=== PATIENT | male | born 1930 | race Caucasian/White ===

== ENCOUNTER 2016-07-27 10:48 | Inpatient (IN) | payer MEDICARE, BC ==
[~2016-07-27] VITALS: Ht 182.9 cm; Wt 81.1 kg
--- NOTE | ~2016-07-27 | ECH ---
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 Summary Technically fair exam. The estimated left ventricular ejection fraction is 10- 15%. Global hypokinesis. The left ventricle is severly dilated . Mild concentric left ventricular hypertrophy. Diastolic function indeterminate due to patient's arrhythmia. Mild to moderately reduced right ventricular function. Mild to moderately dilated right ventricle. The left atrium is severely dilated by LA volume index measurement. The right atrium is severely dilated. MIld mitral regurgitation. There is trivial aortic regurgitation by color Doppler. Moderate to severe tricuspid regurgitation by color Doppler. There is moderate pulmonary hypertension. The pulmonary pressure (RVSP) is 46mmHg. Recommendation The patient was given the results of the exam during their hospital stay. Procedure Type of Study TTE procedure:Echo Complete SF. Procedure Date Date: 07/29/2016 Start: 09:34 AM Technical Quality: Adequate visualization Indications:Non-sustained VTach, Coronary artery disease and Atrial fibrillation. Additional Indications:AICD Appropriate Use Criteria: 9 Height: 72 inches Weight: 194 pounds BSA: 2.1 m Rhythm: Paced HR: 80 bpm BP: 110/60 mmHg M-Mode/2D Measurements LV Diastolic Dimension: 7.03 cm LV Systolic Dimension: 6.34 cm LV Septum Diastolic: 1.14 cm LV PW Diastolic: 1.18 cm AO Root Dimension: 2.08 cm Cardiac Output: 2.7 l/min LA Dimension: 5.35 cm Cardiac Index: 1.29 l/min*m RV Diastolic Dimension: 3.3 cm LA volume index: 68 ml/m LVOT: 2.19 cm LVOT VTI: 8.96 cm RV Base: 4.9 cm LV Stroke volume: 33.73 ml RV Mid: 3.4 cm LV Stroke volume index: 16.06 ml/m RV Length: 8.6 cm TAPSE: 1.38 cm Doppler Measurements AV Peak Velocity: 0.8 m/s MV Peak E-Wave: 0.94 m/s AV Peak Gradient: 2.56 mmHg AV Mean Gradient: 1.53 mmHg LVOT Peak Velocity: 0.45 m/s AV Area (Continuity):2.01 cm PV Peak Velocity: 0.69 m/s TR Velocity:3.19 m/s PV Peak Gradient: 1.92 mmHg TR Gradient:40.7 mmHg Estimated PASP: 45.7 mmHg Estimated RAP:5 mmHg Estimated RVSP: 46 mmHg RA Area: 28.5 cm Findings Left Ventricle The left ventricle is severly dilated . Mild concentric left ventricular hypertrophy. Diastolic function indeterminate due to patient's arrhythmia. Right Ventricle Mild to moderately reduced right ventricular function. Mild to moderately dilated right ventricle. Device lead noted in the right ventricle. Left Atrium The left atrium is severely dilated by LA volume index measurement. Right Atrium The right atrium is severely dilated. Device lead seen in the right atrium. Mitral Valve Normal mitral valve structure and function. Mild mitral regurgitation by color Doppler. Aortic Valve The aortic valve is mildly sclerotic. There is trivial aortic regurgitation by color Doppler. Tricuspid Valve Normal appearing tricuspid valve. Moderate to severe tricuspid regurgitation by color Doppler. There is moderate pulmonary hypertension. The pulmonary pressure (RVSP) is 46mmHg. Pulmonic Valve Normal pulmonic valve structure and function. Pericardial Effusion No evidence of pericardial effusion. Miscellaneous Visualized portions of the aortic root and ascending aorta appear normal in size. Pleural Effusion No evidence of pleural effusion. Contractility Score LV regional wall motion:(0-Non visualized 1-Normal 2-Hypokinesis 3-Akinesis 4-Dyskinesis 5-Aneurysm) Signature
--- NOTE | ~2016-07-27 | CO ---
ADMIT: 07/27/2016 RM/LOC: 405 [facility] MR#: [id number] [address] [facility] [address] [place] [phone] DON LOVELL Keisha [address] [place], [place] [address] Consultation SEX: M AGE: 85 : 1930 DATE OF CONSULTATION: 08/01/2016 ATTENDING PHYSICIAN: Felicia Kaur CONSULTING PHYSICIAN: Ruben Barrientos MD ADDENDUM: CHIEF COMPLAINT: The patient has had worsening dysphagia. It has been going on for several months, but it got quite a bit worse over the last few weeks especially since he has been in the hospital since Friday. He is able get soft foods and liquids to go down, but it has become more of a problem for him. He had an upper GI done recently, which showed evidence of narrowing with minimal barium going through his distal esophagus and probably about a 5 mm opening. Does not appear to have a hiatal hernia, but nonetheless has minimal emptying of his esophagus into the stomach. So, because of this, I was asked to see him for possible upper endoscopy and dilation. Unfortunately, the patient has recently been on amiodarone, he is on Coumadin. His INR is over 2 at this time. On exam, his abdomen is soft. It is nontender. I have actually done a hernia repair on him in the past. ASSESSMENT: Dysphagia with evidence of narrowing in the distal esophagus. PLAN: I have recommended proceeding with EGD and dilation, but because of his Coumadin, we will have to him off that for a few days to allow his INR to reverse to normal. I will defer his anticoagulation to Dr. Kaur in the mean time, as well as his amiodarone to the document control supervisor. So, we will tentatively plan on doing this for him on Friday. He and his daughter understand all this and agree with the plan. Ruben Barrientos MD/ geeta JOB #: [id number] CC: Felicia Kaur, Attending Physician Felicia Kaur, Family Physician
[~2016-07-27 10:48] MED LIST: BENTYL10 MG PO; COREG DPS12.5 MG PO; COREG6.25 MG PO; COUMADIN5 MG PO; COUMADIN6 MG PO; CULTURELLE1 CAP PO; DIOVAN80 MG PO; FLECTOR 1.3% TP; KLOR-CON M2020 MEQ PO; LACTAID1 TAB PO; LIPOFLAVOVIT C1 EACH PO; MAALOX DPS30 ML PO; MICRO-K DPS10 MEQ PO; MOI-STIR120 ML SL; NITROSTAT0.4 MG SL; OCEAN NASAL MIS45 ML NS; PERCOCET 5 DPS1 TAB PO; PROVENTIL2.5 MG/3 M IH; ROBITUSSIN100 MG/5 M PO; SURFAK240 MG PO; TESSALON PERLE100 MG PO; VITAMIN B12-FO1 EACH PO; VITAMIN D31000 UNIT PO
--- NOTE | 2016-07-28 13:58 | CO ---
ADMIT: 07/27/2016 RM/LOC: 405 [facility] MR#: [id number] 2620 [facility] [address] [place] [phone] DON LOVELL [address] [place], [place] [id number] Consultation SEX: M AGE: 85 : 1930 DATE OF CONSULTATION: 07/28/2016 ATTENDING PHYSICIAN: Felicia Kaur CONSULTING PHYSICIAN: Mickey Aguilar MD REASON FOR CONSULTATION: Nonsustained ventricular tachycardia. HISTORY OF PRESENT ILLNESS: Darío is a pleasant 85-year-old male, who is well known to [facility], whom I was asked to see in consultation from Dr. Yony Barker regarding nonsustained ventricular tachycardia. Darío has a long history of coronary artery disease and a history of severe ischemic cardiomyopathy with an EF of 15% to 20%. He has had problems with recurrent paroxysmal ventricular tachycardia and previously had been on sotalol and amiodarone, but he has had intolerances. Yesterday, he presented to the emergency room where he would have spells where he would have nausea with vomiting. He would also feel palpitations and dizzy. He would feel like his heart was beating fast and hard. He denies receiving any ICD shocks but did have his device interrogated yesterday in the emergency room. He had 6% of PVCs and nonsustained ventricular tachycardia, otherwise it was 94% BiV paced. He denies any chest pain. He has had increased lower extremity edema, but denies any orthopnea. He says he has been taking his medications as prescribed, but [facility] PAST MEDICAL HISTORY: 1. History of ischemic cardiomyopathy with an EF of 15% to 20%, status post biventricular ICD. 2. History of coronary artery disease with remote CABG and multiple PCIs since then. CABG was in 1994. 3. History of permanent atrial fibrillation on Coumadin. 4. Status post AV node ablation with biventricular ICD in 2005. 5. History of hypertension. 6. History of B12 deficiency. 7. Chronic kidney disease. 8. Constipation. 9. History of pulmonary hypertension. 10.History of kidney stones. 11.Hyperlipidemia. 12.History of GERD. 13.History of Meniere's disease with chronic dizziness. 14.History of hernia repair. 15.Status post inguinal hernia repair. HOME MEDICATIONS: Include: 1. Acetaminophen. 2. Carvedilol. 3. Aspirin. 4. Vitamin D. 5. Bentyl. ADMIT: 07/27/2016 RM/LOC: 405 [facility] MR#: [id number] [address] [address] DON LOVELL [facility] [place] [address] Consultation SEX: M AGE: 85 : 1930 6. Lactose. 7. Lactobacillus. 8. Nitro. 9. Protonix. 10.Torsemide. 11.Valsartan. 12.Dextran. 13.Coumadin. 14.Recently started on levothyroxine. ALLERGY: List is extensive and documented in the chart, but include amiodarone intolerance along with sotalol intolerance. He has also had a history of problems with anesthetics, tetracycline, macrolides, nifedipine, lactulose, cefpodoxime, procainamide, vancomycin, and latex. SOCIAL HISTORY: He lives with his daughter. He is . Remote smoking history. Denies any alcohol use. He drinks one cup of coffee a day. He does use his walker to walk around in the house, and walks to appointments, but does not do any regular exercise. FAMILY HISTORY: Family history of heart disease in his father, brother. Also, family history of diabetes in sister and brother. REVIEW OF SYSTEMS: GENERAL: Denies any weight gain, weight loss, or fever. He has had a decreased appetite recently. EYES: Denies any visual changes, but has had problems with visual changes with amiodarone previously. ENT: Denies any hearing loss. RESPIRATORY: Denies hemoptysis. He does snore. CARDIAC: Denies chest pain, or diaphoresis. He does have the palpitations and lightheadedness. VASCULAR: Denies any claudications, but does have increased lower extremity edema. GI: He has had nausea and vomiting. Does have history of reflux. : He has history of kidney stones. Denies any nocturia or hematuria. ENDOCRINE: [facility]. NEUROLOGIC: Denies any memory loss or seizures. He does have chronic dizziness and relates that to Meniere's. PSYCHIATRIC: Denies any depression or hallucinations. No anxiety. SKIN: Denies any rashes. MUSCULOSKELETAL: He has joint pains and myalgias. HEMATOLOGIC/ONCOLOGIC: Denies any history of anemia or bleeding, or low platelets. Denies any history of cancer. All other systems reviewed and negative. PHYSICAL EXAMINATION: VITAL SIGNS: Blood pressure was 146/66, pulse is 80, respirations 16, temperature 96.3, oxygen 96% on room air. GENERAL: He is in no acute distress. He is alert and oriented. Cooperative. ADMIT: 07/27/2016 RM/LOC: 405 [facility] MR#: [id number] [address] [place] [phone] DON LOVELL [address] [place] [address] Consultation SEX: M AGE: 85 : 1930 HEENT: Normocephalic and atraumatic. Moist mucous membranes. No scleral icterus. NECK: Supple. JVP is difficult to visualize. LUNGS: Clear to auscultation bilaterally. HEART: Regular rate and rhythm. ABDOMEN: Soft, nontender, and nondistended. Mildly obese. EXTREMITIES: He has mild edema bilaterally. NEUROLOGIC: Cranial nerves II through XII intact. SKIN: No rashes. LABORATORY DATA: Potassium is 3.5, creatinine 1.1. INR is 2.2, troponin is negative at 0.034. White blood cell count 4.2, hemoglobin 11.6, platelets 106. Magnesium is 2. EKG shows ventricular paced rhythm. IMPRESSION AND PLAN: 1. Recurrent nonsustained ventricular tachycardia. The patient has a history of VT with multiple intolerances to antiarrhythmics including amiodarone, sotalol, and procainamide. He has seen EP with Dr. Martinez in the past and with his intolerances, there has not been much to offer other than maximal medical therapy with beta-miller. There are no signs of underlying ischemia, but he does have some increased lower extremity edema. We will try to give him some Lasix today. I would also try to increase his beta-miller. Certainly, his prognosis is very guarded with his underlying severe ischemic cardiomyopathy. I did discuss code status with him and if his ICD is unsuccessful, he does not want further resuscitative measures taken. 2. Ischemic cardiomyopathy with an EF of 15%. 3. Status post biventricular ICD. 4. Permanent atrial fibrillation on Coumadin. 5. Coronary artery disease. Thank you for allowing us to participate in the care of your patient. We will follow along and amend our plan as his care progresses. Mickey Aguilar MD/ geeta JOB #: [id number] CC: Felicia Kaur, Attending Physician Felicia Kaur, Family Physician
--- NOTE | 2016-08-03 17:54 | ER ---
ADMIT: 07/27/2016 RM/LOC: 405 [facility] MR#: [id number] [facility] [address] [address] CARLOTTA LOVELLLEY Keisha [address] [place] [address] Emergency Room Report SEX: M AGE: 85 : 1930 DATE: 07/27/2016 The patient presents to the emergency room with palpitations, nausea, feelings of a shock in his chest, started early this morning. He kind of felt sick of his stomach. Daughter brought him into the emergency room for evaluation. He had some tightness, but he said it is something that he has not felt before. He also adds that his AICD is supposed to be interrogated or rechecked recently in the next few weeks. REVIEW OF SYSTEMS: Otherwise negative. He is very articulate, very pleasant with it and able to give his history very appropriately. He said he got up this morning, tried to get started on the day when he felt this uneasiness in his chest. PAST MEDICAL HISTORY: Positive for inguinal hernia, cardiac bypass, CHF, hypercholesterolemia, hypertension, stents, and cholecystectomy. MEDICATIONS: See T-sheet. ALLERGIES: MULTIPLE, SEE T-SHEET. PHYSICAL EXAMINATION: VITAL SIGNS: Reviewed. GENERAL: He is mildly anxious, but alert. Daughter is at bedside. HEENT: Normal inspection. Oral mucosa slightly dry. NECK: Supple. No JVD. No bruits. RESPIRATIONS: No distress. CVS: Irregular. ABDOMEN: Nontender. SKIN: Good color and turgor. EXTREMITIES: Pedal edema bilaterally 2+. NEUROLOGIC: Oriented x4. Mood and affect are appropriate although slightly anxious. LABORATORY DATA: Typically basic labs for Cardiology were done. His white ADMIT: 07/27/2016 RM/LOC: 405 [facility] MR#: [id number] [address] [address] DON LOVELL [address] [place] [address] Emergency Room Report SEX: M AGE: 85 : 1930 count 4.2 with a hemoglobin of 11.8, hematocrit 37, platelets slightly low at 125. His BUN is 25 with a sodium of 147, alkaline phosphatase 141 with a GFR of 55. BNP 3833. We went ahead and contacted the AICD passenger representative for [facility] and he came in, interrogated the AICD and found some irregularities and atrial fibrillation with RVR on several occasions which was pretty transient and at the same time, he started developing his symptoms in the morning. CLINICAL IMPRESSION: Congestive heart failure exacerbation with arrhythmia, leg edema bilaterally, pacer, AICD activation. He was admitted. Dr. Warner contacted Dr. Yony Barker for Dr. Kaur and Cardiology contacted as well for consultation. The patient admitted to the hospital for further evaluation. BRODY Rivas / Mohinder Warner MD / modl JOB #: [id number] CC: Felicia Kaur MD, Attending Physician Felicia Kaur MD, Family Physician
--- NOTE | 2016-08-05 07:29 | HP ---
ADMIT: 07/27/2016 RM/LOC: 405 [facility] MR#: [id number] 2620 [facility] [address] [place] [phone] CARLOTTA LOVELLCHIDI Val[address] [place] [address] History and Physical SEX: M AGE: 85 : 1930 DATE OF SERVICE: 07/27/2016 CHIEF COMPLAINT: Nausea, vomiting, palpitations, and heart beating fast. HISTORY OF PRESENT ILLNESS: The patient is a very pleasant 85-year-old gentleman. He has past medical history of coronary artery disease, ischemic cardiomyopathy, atrial fibrillation, and ventricular tachycardia, status post AICD. He presents to [facility] Emergency Room today with the last 24 to 36 hours of spells of where he all of a sudden would have a minute or so of nausea with vomiting, palpitations, dizziness, and feeling just like his heart was beating fast and beating very hard. He denies any AICD shocks. Denies any real chest pain, but notes maybe a little short of breath, but has noted more episodes end of this and he can mention even over the last 36 hours as I mentioned. The patient notes he has been taking all of his medications as directed. Does note recently [facility], and with all of these significant symptoms, he had an AICD interrogation in the emergency room that showed multiple episodes of ventricular tachycardia, nonsustained. He is admitted for observation. PAST MEDICAL HISTORY: 1. Ischemic cardiomyopathy, permanent atrial fibrillation, status post BiV AICD. 2. Hypertension. 3. B12 deficiency. 4. Chronic anticoagulation with Coumadin. 5. Chronic systolic heart failure. 6. Chronic kidney disease. 7. Constipation. 8. Pulmonary hypertension. 9. History of kidney stones. 10.Hyperlipidemia. 11.History of GERD/peptic ulcer disease. 12.History of Meniere. 13.Status post coronary bypass grafting. 14.Status post hernia repair. 15.Status post open reduction and internal fixation of direct inguinal hernia. HOME MEDICATIONS: Include: 1. Acetaminophen. 2. Carvedilol. 3. Aspirin. 4. Vitamin D. 5. Bentyl. 6. Lactase. 7. Lactobacillus. 8. Nitroglycerin. 9. Protonix. 10.Torsemide. ADMIT: 07/27/2016 RM/LOC: 405 [facility] MR#: [id number] [address] [address] DON LOVELL [address] [place] [address] History and Physical SEX: M AGE: 85 : 1930 11.Valsartan. 12.Amiodarone. 13.Dextran. 14.Warfarin. 15.Recently started levothyroxine. ALLERGIES: PLEASE SEE HIS ALLERGY LIST IT IS VERY LONG INCLUDING ANY TYPE ANESTHETICS, TETRACYCLINES, MACROLIDES, JAVON-TYPE ANESTHETICS, NIFEDIPINE, LACTOSE, CEFPODOXIME, PROCAINAMIDE, VANCOMYCIN, AND LATEX. FAMILY HISTORY: Noncontributory. REVIEW OF SYSTEMS: As noted above. All systems are reviewed and negative. SOCIAL HISTORY: Current nonsmoker and nondrinker. He is . PHYSICAL EXAMINATION: VITAL SIGNS: 98.1, 82, 18, 136/62, and 95% on room air. GENERAL: This is an elderly gentleman. No apparent distress. Alert and oriented x3. Cooperative. HEENT: Normocephalic and atraumatic. Mucous membranes are moist. NECK: Supple. LUNGS: Clear. HEART: Regular to me at this time. ABDOMEN: Soft, nontender, and nondistended. Positive bowel sounds throughout. CHEST: He has the AICD noted in his upper chest. EXTREMITIES: Show just trace edema. NEUROLOGICAL: Cranial nerves intact. No focal deficits noted. SKIN: Shows no rashes. LABORATORY DATA: His magnesium is 2. His potassium is 3.8, sodium is 147, BUN is 25, and creatinine 1.2. Troponin is 0.024. INR was 1.98. Hemoglobin 11.8, white count 4.2, and 125,000 platelets. ASSESSMENT AND PLAN: 1. Episodes of nausea, vomiting, and palpitations with a feeling of forceful heartbeat consistent with episodes of nonsustained ventricular tachycardia as noted on his AICD interrogation. 2. Coronary artery disease. ADMIT: 07/27/2016 RM/LOC: 405 [facility] MR#: [id number] [address] [address] DON LOVELL [address] [place] [address] History and Physical SEX: M AGE: 85 : 1930 3. Status post coronary artery bypass grafting. 4. Ischemic cardiomyopathy, status post biventricular automatic implantable cardioverter defibrillator. 5. Atrial fibrillation. 6. Chronic anticoagulation. 7. Questionable history of newly diagnosed hypothyroidism at the [facility]. At this time, the patient is asymptomatic. I am going to have Cardiology see him. I will watch him closely on telemetry. I am going to recheck his thyroid labs as I have noticed recently they have been starting a lot of people over at the [facility] on thyroid replacement for subclinical hypothyroidism. We will rule him out with serial cardiac enzymes and EKGs, and we will await further Cardiology evaluation. Yony Barker MD/ geeta JOB #: [id number] CC: Felicia Kaur, Attending Physician Felicia Kaur, Family Physician
--- NOTE | 2016-08-06 05:33 | NUR ---
Pt. stated coriner in the evening he would like to be left alone and not woken up throughout the night. He would put on his call light if he woke up for me to get his second assessment. pt never called so I checked on him at 5:30 and he stated he would like to keep resting and not do his second assessment for the night.
--- NOTE | 2016-08-07 06:17 | NUR ---
Pt. states he does not want to be woken for second assessment or weight unless he calls for us.
[2016-08-09] MEDS ORDERED: NITROSTAT0.4 MG SL (11:12)
[2016-08-09] MEDS ORDERED: TEARS NATURAL D15 ML OU (11:13)
[2016-08-09] MEDS ORDERED: B-12500 MCG PO (11:15)
[2016-08-09] MEDS ORDERED: ACIDOPHILUS1 EAC4 PO (11:15)
[2016-08-09] MEDS ORDERED: VITAMIN D31000 UNIT PO (11:15)
[2016-08-09] MEDS ORDERED: LACTAID FAS9000 UNI1 PO (11:15)
[2016-08-09] MEDS ORDERED: LIPO-FLAVONOID1 EACH PO (11:16)
[2016-08-09] MEDS ORDERED: COREG DPS6.25 MG PO (11:16)
[2016-08-09] MEDS ORDERED: TYLENOL325 MG PO ×2 (11:16→11:18)
[2016-08-09] MEDS ORDERED: SENOKOT S1 TAB PO (11:17)
[2016-08-09] MEDS ORDERED: COUMADIN2.5 MG PO (11:17)
[2016-08-09] MEDS ORDERED: CORDARONE DPS200 MG PO (11:17)
[2016-08-09] MEDS ORDERED: DIOVAN40 MG PO (11:18)
[2016-08-09] MEDS ORDERED: PROTONIX40 MG PO (11:18)
[2016-08-09] MEDS ORDERED: BENTYL-DPS10 MG PO (11:18)
[2016-08-09] MEDS ORDERED: FLONASE 0.05% D16 GM NS (11:19)
[2016-08-09] MEDS ORDERED: BIOFREEZE89 ML TP (11:19)
[2016-08-09] MEDS ORDERED: ZOFRAN ODT4 MG PO (11:19)
[2016-08-09] MEDS ORDERED: DEMADEX20 MG PO (11:20)
--- NOTE | 2016-08-27 07:03 | OR ---
ADMIT: 07/27/2016 RM/LOC: 405 [facility] MR#: [id number] [address] [facility] [address] [place] [phone] CARLOTTA LOVELLCHIDI Val[address], [place] [address] Operative/Delivery Room Report SEX: M AGE: 85 : 1930 Corrected: 08/20/2016 1624 djs SURGERY DATE: 08/05/2016 SURGEON: Ruben Barrientos MD PREOPERATIVE DIAGNOSIS: Dysphagia, known stricture on esophagram. POSTOPERATIVE DIAGNOSIS: 1. Small sliding-type hiatal hernia. 2. Mild gastritis. PROCEDURE PERFORMED: EGD with dilation with radially dilating balloon 18 to 20 mm. ANESTHESIA: Anesthesia sedation. ESTIMATED BLOOD LOSS: None. DESCRIPTION OF PROCEDURE: After appropriate informed consent was obtained, the patient was brought to the endoscopy suite. IV sedation was provided. A well-lubricated endoscope was introduced and passed down the esophagus. The proximal and mid esophagus appeared normal. Distal esophagus showed little bit tortuosity, a very small sliding-type hiatal hernia. No significant stricture or narrowing. The scope went through this area pretty easily. The gastric mucosa in the antrum, which is just mildly inflamed. The pylorus was intubated. Duodenal bulb second through third portions of the duodenum appeared normal. The scope was pulled back into the stomach, retroflexed revealing again just a small sliding type hiatal hernia from below. An 18 to 20 mm balloon was selected passed across the GE junction first inflated to 18 then 19, and subsequently up to 20 mm held the balloon was then deflated removed. This gave us a nice dilation effect to the GE junction. The stomach was then deflated the scope withdrawn without apparent complications. The patient tolerated the procedure well and was taken to the recovery room in stable condition. Ruebn Barrientos MD/ modl JOB #: [id number] CC: Felicia Kaur, Attending Physician Felicia Kaur, Family Physician Felicia Kaur MD Corrected: 08/20/2016 1624 djs
--- NOTE | 2016-10-24 08:42 | DS ---
ADMIT: 07/27/2016 RM/LOC: 405 [facility] MR#: [id number] [address] [address] [place] [place], [place] [id number] Discharge Summary SEX: M AGE: 85 : 1930 ADMISSION DATE: 07/27/2016 DISCHARGE DATE: 08/08/2016 DIAGNOSES: 1. 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 2. History of biventricular ICD (implanted cardioverter-defibrillator). 3. Ischemic cardiomyopathy with an ejection fraction of 15%. 4. Permanent atrial fibrillation. 5. Dizzy. 6. Hypothyroid. 7. Nausea. 8. DNR/DNI (do not resuscitate/do not intubate). 9. Coronary artery disease. 10.Hypokalemia. 11.Constipation. 12.GERD (gastroesophageal reflux disease). 13.Bloating. 14.Pain. 15.Dysphagia. 16.Foot pain. 17.Weakness. 18.GE (gastroesophageal stricture). 19.Presbyesophagus. 20.Insomnia. CONSULTS: 1. [facility]. 2. Surgery Group. PROCEDURES: 1. Echo 07/29/2016. 2. Upper GI with esophagram 07/31/2016. 3. EGD with dilation 08/05/2016. 4. Midline placement 08/03/2016. REASON FOR HOSPITALIZATION: Firing of his AICD. See dictated H and P. LABORATORY AND X-RAY DATA: Echo showed an ejection fraction of 10-15%. Global hypokinesis. Mild to moderate reduced right ventricular function as well as a dilated right ventricle. Moderate to severe tricuspid regurgitation and moderate pulmonary hypertension with an RVSP of 46. EGD on 08/05/2016 did show a small sliding type hiatal hernia, mild gastritis, and a little narrowing requiring dilation with a balloon from 18-20 mm. Upper GI with esophagram on 07/31/2016 was attempted but not complete because he could not swallow enough of the barium to get it into his stomach. This did show marked tertiary contractions with poor clearance of barium from the esophagus. To and from motion noted in the esophagus. Stricture of the gastroesophageal junction was noted. White blood count 4.3, hemoglobin 11, platelet count 120, ADMIT: 07/27/2016 RM/LOC: 405 [facility] MR#: [id number] [address] [address] [place] [address] Discharge Summary SEX: M AGE: 85 : 1930 INR 1.21 at discharge. 2.21 on admission. Final sodium 142, potassium was 4.5, chloride 106, CO2 is 30, BUN 29, creatinine 1.3, blood sugar 106, calcium 8.3, phosphorus 3.9, total bilirubin 1.2, protein 6.5, albumin 3.1, alkaline phosphatase 117, AST was 12, ALT 15, magnesium 2.4. GFR was 50. ProBNP 3,833. Free T4 0.93. TSH 6.5. COURSE IN HOSPITAL: Darío was admitted after having had his AICD fire. He was immediately put on telemetry. His ICD was evaluated. Cardiology became involved. They put him on an amiodarone drip. In the beginning, he had multiple runs of ventricular tachycardia up from 9 to 19 beats in an hour. The following morning, it was noted in his allergy list that he had an "allergy." They started carvedilol at 12.5 twice daily. Supplemented potassium. Change Demadex to IV Lasix. He was a DNR/DNI if his ICD was unsuccessful at defibrillation per family's request. Echocardiogram was obtained as above. I did sit down and talk with Darío about everything. We decided the worst of two evils was the side effect he had with the amiodarone. Therefore, we resumed the amiodarone. Thankfully, he did tolerate it. They put it at a higher dose and then gradually decreased it as quickly as possible. He was given Oxy IR for pain and Boost for his nutrition as he could not swallow very well. During the course of his hospital stay, he was diuresed successfully. He was breathing better. The swallowing became quite distinctive in terms of how much of a problem it was. For this reason, an upper GI with an esophagram was attempted. He had a very tight stricture. Therefore, Surgery was asked to see and they did an EGD and dilation with improvement in his symptoms. He was no longer nauseated on a daily basis and could eat better. 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 Neurontin was started at a low dose at bedtime. He at first did seem to tolerate this so we kept it going. Through the course of the hospital stay, he gradually improved. He was not nearly strong enough to go home. Constipation was an issue and was adjusted. Because of the inability to care for himself, [facility] was contacted and they did have a room for him. He was subsequently dismissed on 08/08/2016 to go to [facility] for continued therapy. He was going for physical therapy and occupational therapy. DISCHARGE MEDICATIONS: Discharge medications included the following medications: 1. Lactate at bedside. 2. O2 as we are doing. 3. Amiodarone 200 mg daily at bedtime. 4. Coreg 12.5 b.i.d. 5. Coumadin 6 mg daily. 6. Demadex 20 mg daily. 7. Diovan 40 daily. 8. Potassium 40 mEq daily. 9. Neurontin 200 at bedtime. 10.Pepcid 20 mg 2 pills b.i.d. 11.Senna 4 pills daily but up to 6 if he needs it. ADMIT: 07/27/2016 RM/LOC: 405 [facility] MR#: [id number] [facility] [address] [place] [id number] [address] [place] [address] Discharge Summary SEX: M AGE: 85 : 1930 12.Artificial Tears at bedside. 13.Lotrisone q.i.d. p.r.n. 14.Lactaid p.r.n. 15.Tylenol 325 three pills every 6 hours. 16.Vitamin D3 2000 international units daily. 17.Bentyl 10 mg q.6h p.r.n. 18.Lactobacillus b.i.d. 19.Acetaminophen p.r.n. 20.Zofran 4 mg q.6 p.r.n. He will have an appointment with me in 2-3 weeks. Overall prognosis is fair. Time spent was 50 minutes. Felicia Kaur MD/ autumn JOB #: [id number] CC: Felicia Kaur MD, Attending Physician Felicia Kaur MD, Family Physician . [facility] [address] [facility] [address]
== END 2016-08-08 15:15 | DRG 309 ==
LOC: ER 10:48 → 4PCU 14:25
PROVIDERS: ADMIT Internal Medicine
PROC: 0D748ZZ Dilation of Esophagogastric Junction, Via Natural or Artificial Opening Endoscopic (ICD-10-PCS; principal; 2016-08-05)
DX: I47.2 Ventricular tachycardia (principal); I13.0 Hypertensive heart and chronic kidney disease with heart failure and stage 1 through stage 4 chronic kidney disease, or unspecified chronic kidney disease; E44.0 Moderate protein-calorie malnutrition; I27.2 Other secondary pulmonary hypertension; I50.22 Chronic systolic (congestive) heart failure; K22.2 Esophageal obstruction; G62.9 Polyneuropathy, unspecified; I25.5 Ischemic cardiomyopathy; E87.6 Hypokalemia; I25.10 Atherosclerotic heart disease of native coronary artery without angina pectoris; K22.8 Other specified diseases of esophagus; K44.9 Diaphragmatic hernia without obstruction or gangrene; K29.70 Gastritis, unspecified, without bleeding; E03.9 Hypothyroidism, unspecified; I48.2 Chronic atrial fibrillation; N18.9 Chronic kidney disease, unspecified; E53.8 Deficiency of other specified B group vitamins; E78.5 Hyperlipidemia, unspecified; K59.00 Constipation, unspecified; G47.00 Insomnia, unspecified; K21.9 Gastro-esophageal reflux disease without esophagitis; H81.09 Meniere's disease, unspecified ear; E78.00 Pure hypercholesterolemia, unspecified; Z95.5 Presence of coronary angioplasty implant and graft; Z95.810 Presence of automatic (implantable) cardiac defibrillator; Z95.1 Presence of aortocoronary bypass graft; Z79.01 Long term (current) use of anticoagulants; Z87.442 Personal history of urinary calculi; Z87.11 Personal history of peptic ulcer disease; Z79.82 Long term (current) use of aspirin; Z87.891 Personal history of nicotine dependence; Z66 Do not resuscitate